=== PATIENT | male | born 1945 | race Caucasian/White ===

== ENCOUNTER 2018-02-22 09:09 | Outpatient (CLI) | payer BC ==
--- NOTE | 2018-02-22 11:43 | MRI ---
MRI CERVICAL SPINE NONCONTRAST: History: Cervical spondylosis. Neck pain with radiculopathy. Comparison: 07-24-16 FINDINGS: Vertebral body heights are maintained. Bone marrow signal with mild degenerative changes. C2-3: Osteophytosis with moderate stenosis, left neural foramen. C3-4: Prominent uncal vertebral and facet hypertrophy with severe stenosis of each neural foramen. C4-5: Mild posterior osteophyte/disc complex. Circumferential degenerative changes with mild to moder ate stenosis of the central canal. Severe stenosis of each neural foramen. C5-6: Disc space narrowing and minimal degenerative retrolisthesis. Posterior osteophyte/disc complex , greater to the right of midline, with flattening of the right ventral aspect of the thecal sac and spinal cord by approximately 30%. No abnormal signal within the spinal cord. Uncal vertebral and face t hypertrophy with severe stenosis of each neural foramen, left greater than right. C6-7: Posterior osteophyte/disc complex with slight effacement of the thecal sac but no significant c ompression of the spinal cord. Uncal vertebral and facet hypertrophy with moderate to severe stenosis of the left neural foramen. Right neural foramen remains patent. C7-T1: Mild osteophytosis without significant central canal or foraminal stenosis. IMPRESSION: 1. Severe multilevel degenerative changes throughout the cervical spine as detailed above. Slight com pression of the spinal cord at the C5-6 level without myelomalacia. Multilevel severe bilateral denis inal stenoses. POS: [facility]
== END 2018-02-22 09:10 | disposition home or self-care (01) ==
LOC: TBSIIMAG 09:09
PROVIDERS: ATTEND Anesthesiology Pain Medicine
DX: M47.22 Other spondylosis with radiculopathy, cervical region (principal); G95.20 Unspecified cord compression; M99.81 Other biomechanical lesions of cervical region
CPT/HCPCS: 72141

== ENCOUNTER 2018-06-17 14:54 | Outpatient (CLI) | payer BC ==
--- NOTE | 2018-06-17 16:05 | MRI ---
MRI CERVICAL SPINE: DATE: 06/17/2018. PROVIDED CLINICAL HISTORY: Neck pain. FINDINGS: Comparison 02/22/2018. Cervical alignment remains normal. Vertebral body heights are preserved. No focal concerning regional marrow signal abnormality is evident. The visualized posterior fossa, cerv icomedullary junction, and cervical spinal cord demonstrate normal signal and morphology. At C2-3, there is bilateral facet arthritis and bilateral uncinate process hypertrophy with severe le ft foraminal narrowing. There is no significant central canal or right foraminal narrowing apparent. At C3-4, there is a broad-based disk-osteophyte complex and bilateral uncinate process hypertrophy. There is mild bilateral facet arthritis. There is severe bilateral foraminal narrowing. There is ef facement of the ventral subarachnoid space by the disk bulge. There is now a small superimposed centr al disk herniation. This approximates the ventral spinal cord without definite contact or deformity. At C4-5, there is a broad-based disk-osteophyte complex and bilateral uncinate process hypertrophy. Bilateral facet arthritis. Severe bilateral foraminal narrowing. No significant central canal steno sis apparent. At C5-6, broad-based disk-osteophyte complex and bilateral uncinate process hypertrophy. Bilateral f acet arthritis. Effacement to the ventral subarachnoid space with flattening of the right ventral he micord redemonstrated. Severe bilateral foraminal narrowing. At C6-7, there is a broad-based disk-osteophyte complex which effaces the ventral subarachnoid space. There is no cord contact or deformity. Moderate left and mild right foraminal narrowing. At C7-T1, there is no significant central canal or foraminal narrowing apparent. IMPRESSION: Advanced multilevel cervical degenerative changes appearing similar to the prior study. There is a n ew small central disk herniation at C3-4 which effaces the ventral subarachnoid space and approximate s the ventral spinal cord. POS: [facility]
== END 2018-06-17 14:55 | disposition home or self-care (01) ==
LOC: TBSIIMAG 14:54
PROVIDERS: ATTEND Anesthesiology Pain Medicine
DX: M48.02 Spinal stenosis, cervical region (principal); M47.812 Spondylosis without myelopathy or radiculopathy, cervical region; M50.21 Other cervical disc displacement, high cervical region
CPT/HCPCS: 72141

== ENCOUNTER 2020-11-19 14:11 | Outpatient (CLI) | payer BC, MEDICARE, OTHER | END 2020-11-19 14:12 | disposition home or self-care (01) | LOC: TBSIIMAG 14:11 | PROVIDERS: ATTEND Anesthesiology Pain Medicine | DX: M47.22 Other spondylosis with radiculopathy, cervical region (principal); M50.10 Cervical disc disorder with radiculopathy, unspecified cervical region | CPT/HCPCS: 72052; 72141 ==

== ENCOUNTER 2021-02-04 12:19 | Outpatient (CLI) | payer BC | END 2021-02-04 12:20 | disposition home or self-care (01) | LOC: TBSIIMAG 12:19 | PROVIDERS: ATTEND Anesthesiology Pain Medicine | DX: M54.16 Radiculopathy, lumbar region (principal); M48.061 Spinal stenosis, lumbar region without neurogenic claudication; M48.07 Spinal stenosis, lumbosacral region | CPT/HCPCS: 72148 ==

== ENCOUNTER 2021-05-17 14:09 | Outpatient (CLI) | payer MEDICARE | END 2021-05-17 14:10 | disposition home or self-care (01) | LOC: TBSIIMAG 14:09 | PROVIDERS: ATTEND Anesthesiology Pain Medicine | DX: M54.16 Radiculopathy, lumbar region (principal); M47.817 Spondylosis without myelopathy or radiculopathy, lumbosacral region | CPT/HCPCS: 72148 ==

== ENCOUNTER 2022-09-29 09:11 | Outpatient (CLI) | payer MEDICARE | END 2022-09-29 09:12 | disposition home or self-care (01) | LOC: BICMRI 09:11 | PROVIDERS: ATTEND Anesthesiology Pain Medicine | DX: S13.4XXA Sprain of ligaments of cervical spine, initial encounter (principal); M43.06 Spondylolysis, lumbar region; M47.816 Spondylosis without myelopathy or radiculopathy, lumbar region; M51.36 Other intervertebral disc degeneration, lumbar region; M46.06 Spinal enthesopathy, lumbar region; M89.38 Hypertrophy of bone, other site; M47.812 Spondylosis without myelopathy or radiculopathy, cervical region; M50.322 Other cervical disc degeneration at C5-C6 level; M48.061 Spinal stenosis, lumbar region without neurogenic claudication; M51.27 Other intervertebral disc displacement, lumbosacral region | CPT/HCPCS: 72052; 72100; 72148 ==